=== PATIENT | female | born 1985 | race Caucasian/White ===

== ENCOUNTER 2016-07-14 21:48 | Inpatient (IN) | payer OTHER ==
[~2016-07-14] VITALS: Ht 177.8 cm; Wt 116.8 kg
[~2016-07-14 21:48] MED LIST: PREN1TAB77 PO
[2016-07-14] MEDS ORDERED: LR 1,000 ML IV PRN (22:18)
[2016-07-14] MEDS ORDERED: ACETAMINOPHEN 500 MG TABLET PO PRN (22:30)
[2016-07-14] MEDS ORDERED: LIDOCAINE 1% (10mg/ml) 2ml SDV ID PRN (22:30)
[2016-07-14] MEDS ORDERED: MAG-AL + SIM LIQUID 30 ML UDC PO PRN ×2 (22:30→23:45)
[2016-07-14] MEDS ORDERED: CALCIUM CARBONATE 500mg Chewable TAB PO PRN ×2 (22:30→23:45)
[2016-07-14 22:36] LABS: HCT - HEMATOCRIT 39.1 % (36-46); HGB - HEMOGLOBIN 13.1 GM/DL (12-16); MEAN CORPUSCULAR HGB 30.7 UUG (26-34); MEAN CORPUSCULAR HGB CONC(MCHC 33.5 GM/DL (31-37); MEAN CORPUSCULAR VOLUME 91.6 UM3 (80-100); MEAN PLATELET VOLUME 10.3 UM3 (9.4-12.4); RED BLOOD COUNT 4.27 M/MM3 (4.00-5.20)
[2016-07-14 22:54] VITALS: BP 131/71; PULSE 86; RESP 18; TEMP 97.5
[2016-07-14] MEDS ORDERED: HYDROCORTISONE 2.5% CREAM 30 GM RECTALLY PRN (23:45)
[2016-07-14] MEDS ORDERED: PHENYLEPHRINE RECTAL SUPPOSITORY RECTALLY PRN (23:45)
[2016-07-14] MEDS ORDERED: MILK OF MAGNESIA 30 ML SUSP PO PRN (23:45)
[2016-07-14] MEDS ORDERED: HYDROCODONE/APAP 5 mg/325 mg TABLET PO PRN (23:45)
[2016-07-14] MEDS ORDERED: DiphenhydrAMINE 25 MG CAPSULE PO PRN (23:45)
[2016-07-15 02:17] VITALS: BP 113/56; PULSE 80; RESP 14
[2016-07-15] MEDS: ACETAMINOPHEN 500 MG TABLET PO PRN ×2 (02:22→20:42)
--- NOTE | 2016-07-15 02:29 | NUR ---
SHIFT SUMMARY: Pt admits to unit in active labor, dilated to 6cm at 2247. Pt states she's been laboring at home since 0100am on 07/14/16. Pt wanting a natural delivery and declines an epidural. Dr Guzmán in room with Pt SROM at 2306, clear fluid noted. Precip delivery of viable male at 2307. Baby placed skin to skin with mother at delivery. Spontaneous delivery of placenta at 2311, Dr Guzmán orders to hold. Pitocin not received after delivery per pt's request. Dr. Guzmán completes repair with lidocaine. VSS. Fundus firm at 1 below umbilicus, light to moderate lochia noted. PO Motrin and Tylenol provided for pain, Pt declines narcotics at this time. RN assist pt to BRP, no complications. Pt voided 100ml gomez colored urine. RN discussed and provided pericare. Ice pack, TUCKS and Benzocaine to perineum. Pt ambulating by self, no complications. IV saline locked in pt's right hand. Pt received 800ml LR bolus while in labor. well, no assistance needed from RN. at bedside and supportive. Pt and appropriate with baby. Addendum: 07/15/16 at 1545 by FLYNN ADAMS RN Correction, Pt admitted to unit at 2147.
--- NOTE | 2016-07-15 02:29 | NUR ---
Chart Check 24 hour chart check completed
[2016-07-15] MEDS: IBUPROFEN 800 MG TABLET PO PRN ×3 (07:39→15:30)
[2016-07-15] MEDS ORDERED: DOCUSATE CALCIUM 240 MG CAPSULE PO SCH (09:00)
--- NOTE | 2016-07-15 09:47 | LDNF ---
DATE OF DELIVERY 07/14/2016 DIAGNOSES 1. 31-year-old white female G4, P2 at 41.1 weeks gestational age. 2. Spontaneous labor. 3. Spontaneous rupture of membranes. 4. Spontaneous vaginal delivery. 5. Male , 3330 grams (7 pounds, 5.4 ounces) (Lemuel). 6. First-degree perineal laceration - repaired. DESCRIPTION This is a patient of Dr. Pleitez that has declined induction so far. She is 41.1 weeks gestational age and contractions began at 1:00 a.m. this morning. She presented this evening complaining of contractions and her initial cervical check was 6 cm dilated so she was admitted and taken to labor room #1. An IV was started. heart tones were reactive. Laboratory was done. The patient began having the urge to push and I checked her and she was complete with a bulging bag so I set up the room and the bag ruptured spontaneously and a few pushes later she had a spontaneous vaginal delivery from the OA position. was bulb suctioned after delivery of the head and then again after delivery of the body. The cord was allowed to drain for a little over two minutes before it was doubly clamped and cut and the infant was initially placed on the mother's abdomen. The placenta delivered spontaneously four minutes later and was intact. There was a first-degree perineal laceration slightly left of midline and it was anesthetized with 1% lidocaine and then repaired in a running, nonlocking fashion with 3-0 chromic. The patient refused Pitocin so I evacuated all blood clots from the uterus and we put baby to breast as soon as we could. EBL was 250. GBS status is negative. Maternal blood type is A+, rubella is immune. At time of dictation mother and are doing well. MTDD
[2016-07-15] MEDS ORDERED: IBUP-1547 PO (10:04)
--- NOTE | 2016-07-15 10:05 | PNPDOC ---
Prog Note 07/15/16 Doing well. vss af desires dc today (less than 24 hrs) ok to dc when baby dc'd q&a-krb SOULEYMANE LUNDBERG MD July 15, 2016 10:03
[2016-07-15 11:00] VITALS: BP 111/55; PULSE 81; RESP 16; TEMP 97.5
--- NOTE | 2016-07-15 15:45 | NUR ---
DISCHARGE TEACHING: PT wake and holding baby in recliner, in room. PO Motrin provided for uterine cramping, rating 3/10. POC reviewed. Pt wanting to DC home tonight, Dr Guzmán's orders reviewed. RN discusses home instructions and OTC Motrin, pt verbalizes understanding. Pt denies other needs at this time, call light within reach.
--- NOTE | 2016-07-15 17:00 | NUR ---
ROUNDING: Pt sitting in recliner, and family in room finishing dinner. Pt tolerating general diet, water pitcher refilled. Pt declines pain at this time and states that she has a little cramping here and there. VSS, axillary temp recorded since pt just ate. Fundus firm at 1 below umbilicus, light lochia reported. 2+ pitting edema in lower extremities. Pt denies other needs at this time, call light within pt's reach.
[2016-07-15 17:07] VITALS: BP 108/65; PULSE 88; RESP 18; TEMP 97.9
[2016-07-15 22:45] VITALS: BP 109/64; PULSE 71; RESP 16; TEMP 98.1
--- NOTE | 2016-07-15 22:54 | NUR ---
VS AND DISCHARGE: Pt sitting in recliner, baby. VSS, no declines pain at this time. RN reviews DC instructions and discusses electronic RX for Motrin. Pt verbalizes understanding of instructions. Pt DC but remains in room with baby.
== END 2016-07-15 22:45 | disposition home or self-care (01) | DRG 775 ==
LOC: MC 21:48 → OBOBS 21:48 → MC 22:16
PROVIDERS: ADMIT Obstetrics & Gynecology; ATTEND Obstetrics & Gynecology
PROC: 10E0XZZ Delivery of Products of Conception, External Approach (ICD-10-PCS; principal; 2016-07-14)
PROC: 0HQ9XZZ Repair Perineum Skin, External Approach (ICD-10-PCS; 2016-07-14)
DX: O48.0 Post-term pregnancy (principal); O70.0 First degree perineal laceration during delivery; Z3A.41 41 weeks gestation of pregnancy; Z37.0 Single live birth
CPT/HCPCS: 85027